=== PATIENT | male | born 1970 | race Caucasian/White ===

== ENCOUNTER 2021-12-10 00:10 | Day surgery (SDC) | payer OTHER, SELFPAY ==
[2021-12-03 18:25] VITALS: BMI 35.5
--- NOTE | 2021-12-03 18:34 | SUR.PREOP ---
Report to the Outpatient Waiting Room, entrance under the green pavilion located off [facility], at time 0600 on date _12/10/21 . OR Time: 0800 . - You and your visitor will be asked a series of questions to screen for COVID 19 for your protection. - A mask is required within the hospital. Preoperative COVID Testing Requirements: No COVID Test needed if: (proof is required; if not received patient will have Rapid Test prior to entry) - Patient has received COVID Vaccine at least 14 days prior to procedure date or - Patient has positive COVID test result within last 90 days of surgery date. COVID Test needed if above criteria is not met If not COVID vaccinated a COVID test must be conducted within 72 hours of surgery and patient is asked to isolate self from time of testing until procedure. You will go to the [facility] for your COVID testing. The [facility] site is located at the corner of [address] [facility]. You will only be called if COVID results are positive and your surgeon may reschedule your elective surgery date. Patients may have clear liquids (water, carbonated beverages, clear teas, apple juice) until 3 hours prior to surgery with a maximum of 20 ounces. - No food from midnight until time of surgery - Infants may have breast milk until 4 hours before surgery, formula 6 hours prior to surgery. - Children will be allowed to drink immediately following surgery. If applicable, please bring a bottle or sippy cup to assist with drinking. Juice, water, soda, and popsicles are readily available. For infants on formula, please bring formula the day of surgery. Pacifiers are allowed. Take the following medications with a SIP of water the morning of surgery: n/a Medications to discontinue per physician ___vitamin supplements Date to take last dose_12/07/21 Please no make-up, nail japanese, hairspray, perfume, deodorant, or body powder the day of surgery. No jewelry (including any body piercings) or valuables the day of surgery, leave them at home. Please take a shower or bath the night before, or the morning of, surgery with an antibacterial soap. Wear comfortable, loose fitting clothing. Children are encouraged to wear pajamas. - Jewelry must be removed prior to entering the operating room. Rings and piercings that are not removed may be cut off. - The hospital will not accept responsibility for valuables. - Please leave all valuables, including medications, at home the day of surgery. hibiclens shower am of surgery If you are going home after surgery, a licensed m48/m60 tank driver must drive you home. - NO public transportation without another adult. - We recommend that an adult stay with you for 24 hours following discharge. - We also recommend that you do not drive, make important decision, drink alcoholic beverages, or take any drugs that were not prescribed by your health care provider for at least 24 hours after your discharge time. For Pediatric surgeries, we recommend two adults accompany the child home (only one inside the building at this time). One visitor will be allowed to accompany the patient into the hospital. Patients visitor will be instructed to remain with patient at all times or leave the building. We will allow the visitor to come back to the postoperative area when patient is ready. Follow any additional instructions given to you from your surgeon. Telephone instructions given to _bushra rodríguez__and asked if any additional questions and then verbalized understanding. Patient advised to call surgeon office or pre surgery nurse liaison [phone] if any additional questions.
[2021-12-10] VITALS (8 sets, daily range): BP systolic 137–179; BP diastolic 98–120; PULSE 77–94; RESP 12–19; TEMP 36.4–36.8; O2SAT 96–100
--- NOTE | 2021-12-10 06:40 | PM.IMHP ---
H&P: HPI History of Present Illness Date/Time: 12/10/21 06:40 Chief Complaint: Umbilical hernia repair Narrative: 51 yo man presents for umbilical hernia repair. He denies any changes since last seen in office. Review of Systems Review of Systems: All systems reviewed & are unremarkable except as noted in HPI and below Constitutional: Constitutional: Denies chills, Denies fever(s), Denies headache(s) and Denies weight loss Eyes: Eyes: Denies change in vision ENT: Denies dizziness, Denies headache(s), Denies neck mass and Denies throat swelling Cardiovascular: Cardiovascular: Denies chest pain, Denies lightheadedness and Denies dyspnea Respiratory: Respiratory: Denies cough, Denies dyspnea and Denies wheezing Gastrointestinal: Gastrointestinal: Denies abdominal pain, Denies change in bowel habits, Denies nausea and Denies vomiting Genitourinary: Genitourinary: Denies hematuria and Denies dysuria Musculoskeletal: Musculoskeletal: Reports as per HPI Integumentary/Breasts: Skin/Breast: Reports as per HPI Neurologic: Denies dizziness and Denies headache(s) Allergic/Immunologic: Allergic/Immunologic: Denies throat swelling and Denies wheezing [facility] Surgical History Surgical History History of ankle surgery Family History Family History Father Lung cancer Social History Social History Smoking status: Never smoker Smokeless tobacco user: chewing tobacco Additional smoking assessment comments: 25 years Alcohol intake: current Alcohol use details: social Living arrangements: with family Additional occupation/education comments: Nurse, [employer] Spiritual care concerns: No Meds Home Medications and Allergies Home Medications Medication Instructions Recorded Confirmed Type flaxseed oil 1,000 mg capsule 1,000 mg PO DAILY 09/08/21 12/03/21 History cetirizine [Zyrtec] 10 mg PO DAILY 12/03/21 12/03/21 History cod liver oil 1 cap PO DAILY 12/03/21 12/03/21 History krill oil 500 mg PO DAILY 12/03/21 12/03/21 History lactobacillus combination no.4 3,000 mmu cells PO DAILY 12/03/21 12/03/21 History [Probiotic] multivitamin 1 tab-cap PO DAILY 12/03/21 12/03/21 History Allergies Allergy/AdvReac Type Severity Reaction Status Date / Time latex Allergy Intermediate Rash Verified 12/03/21 18:09 Exam Const: General: no acute distress and alert Orientation/consciousness: patient oriented x3 HENMT: Head: normocephalic and atraumatic Ears: hearing grossly normal bilaterally General nose exam: Normal nares present Mouth: Yes Normal oral and palatal mucosa present Eyes: Periorbital: periorbital findings normal Sclera: sclerae normal EOM: EOMs intact bilaterally Neck: Neck: normal visual inspection, no lymphadenopathy and trachea midline Chest: Chest palpation & inspection: normal inspection of the chest Resp: Effort & Inspection: normal respiratory effort Auscultation: clear to auscultation bilaterally Cardio: Jugular venous distension: no JVD Rate: regular rate Rhythm: regular rhythm Heart sounds: S1 normal heart sound present and S2 normal heart sound present Peripheral pulses: Peripheral pulses 2+ throughout GI: Inspection: normal to inspection GI Palp: Yes Soft to palpation, No Tenderness to palpation present (GI), No Guarding due to palpation present (GI), Yes Hernia present (2cm umbilical hernia) and No Rebound tenderness present Percussion: Yes normal to percussion Auscultation: normal bowel sounds : General: Yes no CVA tenderness Back/Spine/Pelvis: Back: no CVA tenderness Neuro: General: patient oriented x3, no focal motor deficits and CN's II-XI intact bilaterally Cognition (Neuro): normal cognition Speech: normal speech Motor exam (neuro): 5/5 motor strength present throughout Ex
--- NOTE | 2021-12-10 06:42 | WPDHPUPDATE1 ---
History and Physical Update Update Date/Time: 12/10/21 06:42 History and Physical has been reviewed, including an updated exam of the patient. There are NO changes in the patient's condition. Risks, benefits, and alternatives have been discussed and questions answered. Patient agrees to proceed with procedure.
[2021-12-10] MEDS: ACETAMINOPHEN 500 MG TABLET 1000 MG PO (07:23)
--- NOTE | 2021-12-10 07:30 | WPDANESPNB ---
Anes - Peripheral Nerve Block Date/Time: 12/10/21 07:30 I have discussed with the patient/family/POA the placement of a peripheral nerve block for post-operative pain management, including associated risks, benefits, complications, and side effects. Alternative methods of post-operative analgesia were detailed. Questions were solicited and answers provided to the satisfaction of the patient/family/POA. Time-Out: A pre-procedural Time-Out was completed immediately before starting the procedure and confirmed: Patient Identification, Site, Procedure, Patient Position and the Availability of Requisite Equipment. Clinical Indications: Acute post-operative pain management requested by the operative surgeon. Nerve Block Insertion Note Anes-nerve block: other (B/L BRUCE block) Patient position: other (sitting) Skin prep: chlorhexidine Needle: 22 gauge, stimulating, insulated echogenic needle. Needle length: 80 mm Technique: ultrasound Injectate: bupivacaine 0.5% with epi 5 mcg/ml (20cc/20cc no epi) Observations: tolerated well Complications: none Procedure start time:: 734 Procedure end time:: 744
[2021-12-10] MEDS: LACTATED RINGERS 1,000 ML 30 ML IV CONT ×3 (07:34→10:49)
[2021-12-10] MEDS: KETOROLAC 15 MG/ML VIAL (*BKC) IV PUSH (07:35)
--- NOTE | 2021-12-10 07:47 | P.PNAN_ITS ---
Anes - Initial Pre Proc Eval Procedure: Operation Date: 12/10/21 08:00 Proposed Procedures p Laparoscopic Umbilical Hernia Repair with Mesh, Davinci Assisted - Alex Oviedo DO Date/Time: 12/10/21 07:47 Surgeon: Alex Oviedo DO Pre Op Diagnosis: umbilical hernia Patient Data Age: 51 Gender: M Height: 1.75 m Weight: 113.6 kg Last Vital Signs Temp 98.2 F 12/10/21 07:39 Pulse 81 12/10/21 07:39 Resp 16 12/10/21 07:39 BP 154/118 H 12/10/21 07:39 Pulse Ox 99 12/10/21 07:39 Allergies Allergy/AdvReac Type Severity Reaction Status Date / Time latex Allergy Intermediate Rash Verified 12/10/21 06:59 Home Medications Medication Instructions Recorded Confirmed Type flaxseed oil 1,000 mg capsule 1,000 mg PO DAILY 09/08/21 12/10/21 History cetirizine [Zyrtec] 10 mg PO DAILY 12/03/21 12/10/21 History cod liver oil 1 cap PO DAILY 12/03/21 12/10/21 History krill oil 500 mg PO DAILY 12/03/21 12/10/21 History lactobacillus combination no.4 3,000 mmu cells PO DAILY 12/03/21 12/10/21 Hist ory [Probiotic] multivitamin 1 tab-cap PO DAILY 12/03/21 12/10/21 History Patient hx anesthesia problems: none Family hx anesthesia problems: none Results Review: All pre-operative results and documents have been reviewed as part of the pre-operative evaluation. [facility] Past Medical History Medical History LANDON (obstructive sleep apnea) Tobacco chew use Surgical History Surgical History History of ankle surgery Family History Family History Father Lung cancer Social History Social History Smoking status: Never smoker Smokeless tobacco user: chewing tobacco Additional smoking assessment comments: 25 years Alcohol intake: current Alcohol use details: social Living arrangements: with family Additional occupation/education comments: Nurse, [employer] Spiritual care concerns: No Anes - Eval Final PreProcedure Day of Procedure 12/10/21 07:47 Patient weight: obese Heart: regular rate and rhythm Lungs: clear to auscultation Airway: Mallampati scale class III Neurological: alert and oriented Last oral intake: >/= 8 hours ASA classification: III Emergent: no Anesthetic plan: proceed Anesthesia type and monitoring: general ETT and standard monitoring Results Review: All pre-operative results and documents have been reviewed as part of the pre-operative evaluation. Informed Consent: The patient's anesthetic plan and its attendant risks and benefits were discussed with the patient/family/POA. Questions were solicited and answers provided to the satisfaction of the patient/family/POA.
[2021-12-10] MEDS: ceFAZolin 2 GM/D5W 50 ML 2 GM/50 ML BAG IVPB (08:17)
--- NOTE | 2021-12-10 10:07 | W.PM.PROC2 ---
Procedure Note - Detailed Date of Procedure 12/10/21 Pre-op Diagnosis umbilical hernia Post-op Diagnosis Other (Incarcerated umbilical hernia) Procedure Performed Laparoscopic Incarcerated Umbilical Hernia Repair with Mesh, da Shantal assisted Surgeon Alex Oviedo DO Anesthesia General and Local (Exparel) Indications This is a 51-year-old man who presented with a hernia at his umbilicus that had been present for about 10 years. This started out small but has gradually increased in size and now is causing some discomfort. He does have some redness had the umbilical skin from the skin stretching as well. He was found to have a moderate-sized umbilical hernia containing fat. Discussions were made with the patient about treatment options and decision was made to proceed with robotic assisted laparoscopic umbilical hernia repair with mesh. Findings Upon inspecting the abdomen laparoscopically, the umbilical hernia appeared to be containing an epiploic appendage from the sigmoid colon. This was a very large epiploic appendage and was incarcerated within the hernia defect. I was eventually able to reduce the entire contents of the hernia. The hernia sac and preperitoneal fat was excised from around the hernia defect and this was removed and sent to the lab for pathology. A robotic intraperitoneal onlay mesh (rIPOM) technique was utilized. The hernia measured about 2 cm wide. This was closed using #1 Stratafix running absorbable suture. A Ventralight ST 15 cm x 10 cm mesh was then placed and secured using 2 0 V lock running absorbable suture. Description of Procedure Procedure as well as risks, benefits, and alternatives were discussed with the patient. Written consent was obtained and placed in chart prior to procedure. Patient was brought back to surgical suite. He was placed supine on operating table. Time-out was done to confirm patient and procedure. He was then intubated by the anesthesia department. A bump was placed under his left hip, and the bed was flexed slightly to extend the space between his costal margin and iliac crest. His abdomen was prepped and draped in sterile fashion using chlorhexidine prep. A 5 millimeter incision was made in the left upper quadrant, and a 5 millimeter Optiview trocar was advanced through the abdominal layers under direct visualization. Once inside the abdominal cavity, carbon dioxide insufflation was used to create a pneumoperitoneum. His abdomen was inspected. An 8 millimeter incision was made in the left lower quadrant, and an 8 millimeter robotic trocar was placed under direct visualization. Another 8 millimeter incision was made in the left lateral abdomen, and an 8 millimeter robotic trocar was placed under direct visualization. Exparel was infiltrated along the lateral abdominal pacheco to perform a transversus abdominis plane block bilaterally. The 5 millimeter port was removed, the incision was extended to 12 millimeters, and a 12 millimeter air seal port was placed under direct visualization. A Chris-Melgar cone was also used to place an 0-Vicryl simple interrupted suture at this trocar site. The robotic arms were brought up to the patient's bedside and secured to the ports. The camera and instruments were inserted, and I then moved over to the robotic console and took control of the camera and instruments. After careful thorough inspection of the abdominal cavity, I began my dissection at the hernia. The incarcerated epiploic appendage was reduced and the hernia sac and preperitoneal fat was then excised around the hernia defect. I then measured the hernia size. The hernia measured 2 cm. The fascia was closed using a 1-Stratafix running suture in a vertical fashion. A Ventralight ST 15 cm x 10 cm mesh was then placed within the abdominal cavity. This was oriented vertically with the mesh centered on the hernia defect. The mesh was then secured to the abdominal wall using 2 0 V lock running abs
[2021-12-10] MEDS: hydrALAZINE HCL 20 MG/ML VIAL 5 MG IV PUSH ×2 (10:36→10:48)
[2021-12-10] MEDS: oxyCODONE HCL (*CRX) 5 MG TAB IR PO (11:25)
== END 2021-12-10 12:10 | disposition home or self-care (01) ==
PROVIDERS: Visit Provider Surgery
PROC: (CPT 49653; principal; 2021-12-10 08:00)
DX: K42.0 Umbilical hernia with obstruction, without gangrene (principal); G47.33 Obstructive sleep apnea (adult) (pediatric); F17.220 Nicotine dependence, chewing tobacco, uncomplicated; E66.9 Obesity, unspecified; Z68.37 Body mass index [BMI] 37.0-37.9, adult
CPT/HCPCS: 49653; S2900; 36415; 86850; 86900; 86901; 88302; A9270; C1781; C9290; J0360; J0690; J1100; J1885; J2250; J2405; J2704; J2710; J3010; J7030; J7120